=== PATIENT | female | born 1990 | race African-American/Black ===

== ENCOUNTER 2017-05-23 07:06 | Emergency (ER) | payer OTHER ==
[~2017-05-23] VITALS: Ht 160 cm; Wt 105.0 kg
[2017-05-23 07:06] VITALS: BP 120/80
== END 2017-05-23 07:39 | disposition home or self-care (01) ==
LOC: ER 07:34
DX: R03.0 Elevated blood-pressure reading, without diagnosis of hypertension (principal); E66.9 Obesity, unspecified
CPT/HCPCS: 99283